=== PATIENT | male | born 1995 | race Caucasian/White ===

== ENCOUNTER 2017-12-14 13:17 | Inpatient (IN) | payer OTHER ==
[~2017-12-14 13:17] MED LIST: NICOTINE 21MG/24HR 1 EA TRANSDERMAL TD
[2017-12-14 15:06] LABS: HEMOGLOBIN 16.4 g/dl (13.5-17.5); MEAN CORPUSCULAR HEMOGLOBIN 30.1 pg (27.0-33.0); MEAN CORPUSCULAR HGB CONC 34.9 g/dl (32.0-36.5); MEAN CORPUSCULAR VOLUME 86.2 fl (80.0-96.0); PLATELET COUNT, AUTOMATED 246 10^3/uL (150-450); RED BLOOD COUNT 5.45 10^6/uL (4.30-6.10); RED CELL DISTRIBUTION WIDTH 11.9 % (11.5-14.5)
[2017-12-14 15:50] LABS: ACETAMINOPHEN LEVEL < 2.0 UG/ML (10.0-30.0); ALBUMIN 4.7 GM/DL (3.2-5.2); ALBUMIN/GLOBULIN RATIO 1.34 (1.00-1.93); ALKALINE PHOSPHATASE 65 U/L (45-117); ALT/SGPT 33 U/L (12-78); ANION GAP 8 MEQ/L (8-16); AST/SGOT 16 U/L (7-37); BILIRUBIN,DIRECT 0.2 MG/DL (0.0-0.2); BILIRUBIN,TOTAL 0.6 MG/DL (0.2-1.0); BLOOD UREA NITROGEN 17 MG/DL (7-18); CALCIUM LEVEL 9.6 MG/DL (8.5-10.1); CARBON DIOXIDE LEVEL 28 MEQ/L (21-32); CHLORIDE LEVEL 105 MEQ/L (98-107); CREATININE FOR GFR 0.91 MG/DL (0.70-1.30); GLOMERULAR FILTRATION RATE > 60.0 (>60); GLUCOSE, FASTING 86 MG/DL (70-100); POTASSIUM SERUM 4.5 MEQ/L (3.5-5.1); SALICYLATE LEVEL < 1.7 MG/DL (5.0-30.0); SODIUM LEVEL 141 MEQ/L (136-145); TOTAL PROTEIN 8.2 GM/DL (6.4-8.2)
[2017-12-14 16:48] LABS: AMPHETAMINES LEVEL URINE NEGATIVE (NEGATIVE); BARBITURATES URINE NEGATIVE (NEGATIVE); BENZODIAZEPINES URINE NEGATIVE (NEGATIVE); CANNABINOIDS URINE NEGATIVE (NEGATIVE); COCAINE METABOLITE URINE NEGATIVE (NEGATIVE); METHADONE URINE NEGATIVE (NEGATIVE); OPIATES URINE NEGATIVE (NEGATIVE); PHENCYCLIDINE URINE NEGATIVE (NEGATIVE)
[2017-12-14] MEDS ORDERED: MOM 30ML SUSPENSION UDC PO (17:30)
[2017-12-14] MEDS ORDERED: ACETAMINOPHEN TAB 650MG DOSE (2X325MG) PO (17:30)
[2017-12-14] MEDS ORDERED: MAALOX 30 ML SUSP *UDC PO (17:30)
[2017-12-14 17:46] LABS: ETHYL ALCOHOL (ETHANOL) < 0.003 % (0.000-0.010)
[2017-12-14] MEDS ORDERED: TELMISARTAN 20 MG TAB PO (21:00)
[2017-12-14] MEDS: ATENOLOL 25 MG TAB PO (21:21)
[2017-12-15] MEDS: CHLORTHALIDONE 12.5MG PER 1/2 TABLET PO (07:59)
[2017-12-15] MEDS: TELMISARTAN 20 MG TAB PO (07:59)
[2017-12-15] MEDS ORDERED: TELMISARTAN 20 MG TAB PO ×2 (09:00→21:00)
[2017-12-15] MEDS: LIDOCAINE 5% (LIDODERM) PATCH TD ×2 (09:18→09:55)
[2017-12-15] MEDS: **NOTE PATIENT COMMENT** MISC XX (20:39)
[2017-12-15] MEDS: ATENOLOL 25 MG TAB PO (20:39)
[2017-12-16] MEDS: SERTRALINE HCL 25 MG TABLET PO (08:25)
[2017-12-16] MEDS: CHLORTHALIDONE 12.5MG PER 1/2 TABLET PO (08:26)
[2017-12-16] MEDS: LIDOCAINE 5% (LIDODERM) PATCH TD (08:26)
[2017-12-16] MEDS: TELMISARTAN 20 MG TAB PO (08:26)
[2017-12-16] MEDS: traZODone 50 MG TAB PO (20:40)
[2017-12-16] MEDS: **NOTE PATIENT COMMENT** MISC XX (20:43)
[2017-12-16] MEDS: ATENOLOL 25 MG TAB PO (20:43)
[2017-12-17] MEDS: SERTRALINE HCL 50 MG TAB PO (08:07)
[2017-12-17] MEDS: LIDOCAINE 5% (LIDODERM) PATCH TD (08:07)
[2017-12-17] MEDS: TELMISARTAN 20 MG TAB PO (08:07)
[2017-12-17] MEDS: CHLORTHALIDONE 12.5MG PER 1/2 TABLET PO (08:07)
== END 2017-12-17 11:30 | disposition home or self-care (01) | DRG 885 ==
LOC: M ED 13:17 → M ED INP 17:20 → M PSY 18:05
DX: F32.2 Major depressive disorder, single episode, severe without psychotic features (principal); R45.851 Suicidal ideations; Z59.8 Other problems related to housing and economic circumstances; Z63.5 Disruption of family by separation and divorce; Z62.810 Personal history of physical and sexual abuse in childhood; Z79.899 Other long term (current) drug therapy; F41.9 Anxiety disorder, unspecified; M54.5 Low back pain; I10 Essential (primary) hypertension

== ENCOUNTER 2018-04-07 08:18 | Emergency (ER) | payer OTHER ==
[~2018-04-07] VITALS: Ht 170.2 cm; Wt 95.5 kg
[~2018-04-07 08:18] MED LIST changes: +ATEN25TA PO; +CHLO125TA PO; +LIDO5TD TD; -NICOTINE 21MG/24HR 1 EA TRANSDERMAL TD; +SERT50TA PO; +TELM1TAB37 PO
[2018-04-07] MEDS ORDERED: NS 1,000 ML IV ONE (08:30)
[2018-04-07 08:59] LABS: BASO % 0.4 % (0.0-1.0); EOS # 0.1 10^3/uL (0.0-0.50); EOS % 1.1 % (0.0-3.0); HEMOGLOBIN 17.1 g/dl (13.5-17.5); LYMPH % 23.2 % (24.0-44.0); MEAN CORPUSCULAR HEMOGLOBIN 30.1 pg (27.0-33.0); MEAN CORPUSCULAR HGB CONC 36.4 g/dl (32.0-36.5); MEAN CORPUSCULAR VOLUME 82.7 fl (80.0-96.0); MONO # 0.5 10^3/uL (0.0-0.8); MONO % 6.2 % (0.0-5.0); NEUTROPHILS # 5.9 10^3/uL (1.8-7.7); NEUTROPHILS % 68.6 % (36.0-66.0); PLATELET COUNT, AUTOMATED 249 10^3/uL (150-450); RED BLOOD COUNT 5.68 10^6/uL (4.30-6.10); WHITE BLOOD COUNT 8.5 10^3/uL (4.0-10.0)
--- NOTE | 2018-04-07 09:12 | REP ---
Chest x-ray: Two views. History: Chest pain . Comparison study: No comparison study . Findings: The lungs are well inflated and free of infiltrate. The pleural angles are sharp. The heart size is normal. Pulmonary vasculature is not increased. No significant bony abnormality is seen. EKG electrodes are seen anteriorly. Impression: Negative chest x-ray. Electronically Signed by Kevin Robles MD 04/07/2018 09:03 A
[2018-04-07 09:40] LABS: ALBUMIN 4.4 GM/DL (3.2-5.2); ALT/SGPT 40 U/L (12-78); BILIRUBIN,TOTAL 0.6 MG/DL (0.2-1.0); BLOOD UREA NITROGEN 21 MG/DL (7-18); CALCIUM LEVEL 9.6 MG/DL (8.5-10.1); CARBON DIOXIDE LEVEL 29 MEQ/L (21-32); CHLORIDE LEVEL 100 MEQ/L (98-107); CREATININE FOR GFR 1.02 MG/DL (0.70-1.30); FREE THYROXINE INDEX 2.6 % (1.4-3.8); GLOMERULAR FILTRATION RATE > 60.0 (>60); GLUCOSE, FASTING 72 MG/DL (70-100); POTASSIUM SERUM 3.9 MEQ/L (3.5-5.1); SODIUM LEVEL 137 MEQ/L (136-145); T UPTAKE 36 % (33-40); THYROXINE (T4) 7.1 UG/DL (4.5-12.0); TOTAL PROTEIN 7.8 GM/DL (6.4-8.2)
[2018-04-07 09:56] LABS: CK-MB VALUE MASS < 1.0 NG/ML (<3.6); CPK CREATINE PHOSPHOKINASE 136 U/L (39-308); MB/CK RELATIVE INDEX 0.74 (< OR =4); TROPONIN I < 0.02 NG/ML (< 0.10)
[2018-04-07 12:49] LABS: AMPHETAMINES LEVEL URINE NEGATIVE (NEGATIVE); BARBITURATES URINE NEGATIVE (NEGATIVE); BENZODIAZEPINES URINE NEGATIVE (NEGATIVE); CANNABINOIDS URINE NEGATIVE (NEGATIVE); COCAINE METABOLITE URINE NEGATIVE (NEGATIVE); METHADONE URINE NEGATIVE (NEGATIVE); OPIATES URINE NEGATIVE (NEGATIVE); PHENCYCLIDINE URINE NEGATIVE (NEGATIVE)
--- NOTE | 2018-04-07 13:35 | ECGEPIP ---
Stationary ECG Study [facility] - ED Test Date: 2018-04-07 Pat Name: JULIANNE RESENDIZ Department: Room: - Gender: M Mechanical Manufacturing Technician: : 1995 Requested By: Tete Valdes Order Number: [id number] Reading MD: Harvey Erazo Measurements Intervals [place] Rate: 79 P: 39 IN: 164 QRS: 43 QRSD: 82 T: 37 QT: 335 QTc: 386 Interpretive Statements SINUS RHYTHM EARLY REPOLARIZATION NONSPECIFIC T-WAVE ABNORMALITY NO PRIORS FOR COMPARISON Electronically Signed On 04-07-2018 13:35:07 EST by Harvey Erazo
[2018-04-07 13:40] LABS: CK-MB VALUE MASS < 1.0 NG/ML (<3.6); CPK CREATINE PHOSPHOKINASE 117 U/L (39-308); MB/CK RELATIVE INDEX 0.85 (< OR =4); TROPONIN I < 0.02 NG/ML (< 0.10)
--- NOTE | 2018-04-07 13:42 | ECGEPIP ---
Stationary ECG Study [facility] - ED Test Date: 2018-04-07 Pat Name: JULIANNE RESENDIZ Department: Room: - Gender: M Retail Worker: TC : 1995 Requested By: MARCO A SOTELO Order Number: [id number] Reading MD: Harvey Erazo Measurements Intervals [place] Rate: 78 P: 47 SC: 156 QRS: 40 QRSD: 95 T: 27 QT: 366 QTc: 417 Interpretive Statements SINUS RHYTHM EARLY REPOLARIZATION NSTTW ABNORMALITIES SIMILAR TO PRIOR ON SAME DATE Electronically Signed On 04-07-2018 13:41:35 EST by Harvey Erazo
[2018-04-07 14:23] VITALS: BP 151/77
== END 2018-04-07 14:24 | disposition home or self-care (01) ==
LOC: M ED 08:18
DX: R07.89 Other chest pain (principal); I10 Essential (primary) hypertension; Z79.899 Other long term (current) drug therapy